=== PATIENT | male | born 1960 | race African-American/Black ===

== ENCOUNTER 2018-10-15 15:17 | Outpatient (CLI) | payer MEDICARE, MEDICAID ==
--- NOTE | 2018-10-15 16:15 | MRI ---
EXAM: MRI right shoulder PROVIDED CLINICAL HISTORY: Pain COMPARISON: None FINDINGS: The components of the rotator cuff appear intact. The long head biceps tendon appears intact and norm ally located. The glenoid labrum and glenohumeral articular cartilage are suboptimally evaluated in the absence of joint distention but appear grossly normal. The amount of fluid within the glenohumeral joint is physiologic. There is greater than physiologic s ubacromial subdeltoid bursal fluid. Prominent acromioclavicular joint degenerative changes are seen with periarticular marrow edema and s ubcortical cystlike change. There is associated mass effect upon the subjacent supraspinatus. Regional marrow and muscular signal appear otherwise unremarkable. IMPRESSION: Advanced acromioclavicular joint degenerative arthrosis with associated periarticular marrow edema an d mass effect upon the subjacent supraspinatus. Greater than physiologic subacromial subdeltoid bursal fluid may reflect mild bursitis.
== END 2018-10-15 15:18 | disposition home or self-care (01) ==
LOC: BICMRI 15:17
PROVIDERS: ATTEND Orthopaedic Surgery
DX: M19.011 Primary osteoarthritis, right shoulder (principal); R60.0 Localized edema

== ENCOUNTER 2018-12-20 09:22 | Day surgery (SDC) | payer MEDICARE, MEDICAID ==
[2018-12-19 14:19] VITALS: BMI 20.3
[2018-12-20] MEDS ORDERED: Bupivacaine/Epinephrine 0.25% 30 ML VIAL ONE (09:55)
[2018-12-20 10:44] LABS: #Basophils 0.1 thou/uL (0.0-0.2); #Eosinphils 0.2 thou/uL (0.0-0.7); #Lymphocytes 1.1 thou/uL (1.20-3.40); #Monocytes 0.4 thou/uL (0.11-0.59); #Neutrophils 4.5 thou/uL (1.40-6.50); %Basophils 1.2 % (0.0-1.0); %Eosinophils 2.5 % (0.0-10.0); %Lymphocytes 17.4 % (21.0-51.0); %Monocytes 6.7 % (0.0-10.0); %Neutrophils 72.3 % (42.0-75.0); Hemoglobin 14.7 g/dL (14.0-18.0); Mean Corpuscular HGB CONC 32.6 g/dL (32.0-36.0); Mean Corpuscular Hemoglobin 31.4 pg (27.0-31.0); Mean Corpuscular Volume 96.5 fL (78.0-98.0); Mean Platelet Volume 9.2 fL (7.4-10.4); Platelet Count 133 thou/uL (130-400); RBC Distribution Width 13.1 % (11.5-14.5); Red Blood Cell (RBC) Count 4.67 mill/uL (4.70-6.10); White Blood Cell (WBC) Count 6.2 thou/uL (4.8-10.8)
[2018-12-20] MEDS ORDERED: Fentanyl 100 MCG/2 ML VIAL ONE (11:08)
[2018-12-20] MEDS ORDERED: Midazolam HCl 2 mg/2 ml Vial ONE (11:08)
[2018-12-20] MEDS ORDERED: Albuterol Sulfate HFA (OR ONLY) ONE (11:40)
[2018-12-20 11:41] LABS: Anion Gap 12 mmol/L (10-20); BUN (Urea Nitrogen) 10 mg/dL (8.4-25.7); Calc. Creatinine Clearance 84 mL/min (70-130); Calcium 9.1 mg/dL (7.8-10.44); Carbon Dioxide 27 mmol/L (22-29); Chloride 105 mmol/L (98-107); Estimated GFR-MDRD Greater than 90; Glucose 86 mg/dL (70-105); Potassium 4.1 mmol/L (3.5-5.1); Sodium 140 mmol/L (136-145)
[2018-12-20 12:15] LABS: Prothrombin Time 13.3 SEC (12.0-14.7)
--- NOTE | 2018-12-20 16:54 | HP ---
HISTORY OF PRESENT ILLNESS: Aguilar is a 58-year-old male, who is right handed, presents with right shoulder pain, pain from 0/10 to 7/10. Pain was present over 10 months. Pain located at his AC joint. He has had several injections, which gave him good relief, but he continues to have pain. PAST MEDICAL HISTORY: 1. High blood pressure. 2. History of coronary artery disease. 3. CHF. 4. Hyperlipidemia. 5. Hypertension. 6. Myocardial infarction. 7. Peripheral vascular disease. PAST SURGICAL HISTORY: Includes previous cardiac stents, placed by Dr. Sharpe. ALLERGIES: NO KNOWN DRUG ALLERGIES. MEDICATIONS: 1. Aspirin. 2. Atorvastatin. 3. Digoxin. 4. Ezetimibe. 5. Isosorbide mononitrate. 6. Lisinopril. 7. Metoprolol. 8. Spironolactone. SOCIAL HISTORY: The patient is a smoker. Denies substance abuse. Denies alcohol. The patient is currently unemployed. REVIEW OF SYSTEMS: Noncontributory. PHYSICAL EXAMINATION: GENERAL: Alert and oriented male, in no acute distress. EXTREMITIES: The patient has active forward flexion at 160 degrees, 5/5 rotator cuff. Tenderness to the AC joint. Spurling is negative. Neer and Davis negative. Neurovascularly intact distally. DIAGNOSTIC STUDIES: He had a previous MRI, showing advanced DJD of his AC joint with edema and mass effect on the supraspinatus. No full-thickness rotator cuff tear. Some mild bursitis. IMPRESSION: Left acromioclavicular joint arthritis. ASSESSMENT AND PLAN: The patient is on-call for a left distal clavicle resection arthroscopically. I will evaluate the joint as well as the subacromial space. I discussed risks and benefits of the surgery include pain, scar, bleeding, infection, damage to vital structures, decreased range or motion and strength. I discussed tobacco cessation with the patient for wound healing. I discussed this will hurt, but will improve as time goes on. The patient understands the risks and benefits of the procedure and he elects to proceed. Job ID: [id number]
--- NOTE | 2018-12-20 17:03 | OP ---
DATE OF PROCEDURE: 12/20/2018 PREOPERATIVE DIAGNOSIS: Right acromioclavicular joint arthritis. POSTOPERATIVE DIAGNOSES: 1. Right acromioclavicular joint arthritis. 2. Partial capsular tear intra-articular, infraspinatus. 3. Bursitis. 4. Partial bursal-sided tear, less than 10%. PROCEDURE PERFORMED: 1. Limited debridement of rotator cuff/bursa. 2. Distal clavicle resection. ICE SKATING COACH: None. ANESTHESIA: The patient received a general endotracheal intubation with interscalene single shot. ESTIMATED BLOOD LOSS: 10 mL. TOURNIQUET TIME: None. IMPLANTS: None. ANTIBIOTICS: Ancef 2 g. COMPLICATIONS: None. HISTORY OF PRESENT ILLNESS: Mr. Edgar is a 58-year-old male with over 8 months of pain. The patient had failed conservative measures with injections, anti-inflammatory, and stretching. His injections in his AC joint did give good relief. I discussed with him the risks and benefits of distal clavicle resection and evaluation of shoulder. He understood the risks and benefits of surgery, including pain, scar, bleeding, infection, damage to vital structures, decreased range of motion and strength, fracture below this, need for further surgeries, and loss of life or limb. The patient understood the risks and benefits and elected to proceed. DESCRIPTION OF PROCEDURE: Time-out was performed, designating the patient's right upper extremity as operative site based on site, consents, and marking. After time-out, the patient's posterior portal was placed intra-articularly within the joint. Finally, it was localized within the rotator interval. The capsule was frayed. The glenoid otherwise looked good. The fraying of the superior labrum was intact throughout its course as well as anterior labrum. The glenoid looked good. There was a small capsular tear that was frayed edge within the joint, which was debrided. There was no full-thickness cartilage defects. The subscap was intact and no other places of injury and no loose bodies. I complete my diagnostic intra-articular scope and moved subacromially. There was a full amount of bursa, which was debrided off the rotator cuff in the subacromial space. We were able to find what appeared to be a small, less than 10% bursal-sided tearing or fraying of the rotator cuff. We then moved medially. We exposed the distal clavicle, skeletonized to expose it. I then burred, the entire burs with, through the through the distal clavicle. I then made sure clean looking for anterior and posterior, ensure that I had enough within, took a picture to ensure that there was space with the shaver and marisela from the anterior portal, but using visualization anterior and lateral to expose. At the completion of this, final pictures. I washed and I closed with 3-0 nylon. The patient will be begin passive and active range of motion. I will see him back in 2 weeks, at which time we will progress his motion. Job ID: [id number]
== END 2018-12-20 15:05 | disposition home or self-care (01) ==
LOC: SDC 09:22
PROVIDERS: ATTEND Orthopaedic Surgery
PROC: 0PT90ZZ Resection of Right Clavicle, Open Approach (ICD-10-PCS; principal; 2018-12-20)
PROC: 3E0T3BZ Introduction of Anesthetic Agent into Peripheral Nerves and Plexi, Percutaneous Approach (ICD-10-PCS; 2018-12-20)
DX: M75.111 Incomplete rotator cuff tear or rupture of right shoulder, not specified as traumatic (principal); M19.011 Primary osteoarthritis, right shoulder; S43.491A Other sprain of right shoulder joint, initial encounter; I11.0 Hypertensive heart disease with heart failure; I50.9 Heart failure, unspecified; G89.18 Other acute postprocedural pain; E78.5 Hyperlipidemia, unspecified; F17.210 Nicotine dependence, cigarettes, uncomplicated; I25.2 Old myocardial infarction; I25.10 Atherosclerotic heart disease of native coronary artery without angina pectoris; I73.9 Peripheral vascular disease, unspecified; Z95.5 Presence of coronary angioplasty implant and graft; Z79.82 Long term (current) use of aspirin; Z79.899 Other long term (current) drug therapy
CPT/HCPCS: 36415; 80048; 85025; 85610; J0690; J2250; J3010